=== PATIENT | male | born 1960 | race Two or more races ===

== ENCOUNTER → 2017-02-26 | Outpatient (CLI) | payer OTHER ==
[~2017-02-26] MED LIST: ACET325T33 PO; AMOX1TAB10 PO; IBUP-1542 PO; TRAM-40 PO
--- NOTE | 2017-02-27 05:09 | HKNOTE ---
DATE OF SERVICE: 02/26/2017 CHIEF COMPLAINT: Bilateral knee pain. HISTORY OF PRESENT ILLNESS: This is a 56-year-old male complaining of increasing bilateral knee mendez n. He states that the pain has been worsening over the last year. He has previously seen Dr. Brandon Ghotra at . He does not use any assist devices. He has not had any previous treatment. The p ain is constant. There are no alleviating factors. He denies any groin or back pain. GAIT: Antalgic gait. No use of assisted device. LEFT KNEE EXAMINATION: Varus alignment, tender over the medial joint line, 10 to 130 degrees range of motion and stable to varus/valgus stress, negative Jolly, negative anterior drawer, negative po sterior drawer. RIGHT KNEE EXAMINATION: Neutral alignment, tender over the medial joint line, positive effusion, 10 to 80 degrees range of motion, stable to varus and valgus stress, negative Jolly, negative anteri or posterior drawer, negative Gayle's. MOTOR STRENGTH: 5/5 hamstrings, gastrocsoleus and tibialis anterior bilaterally. X-RAYS RIGHT KNEE THREE VIEWS: There is advanced tricompartmental osteoarthritis of the right knee. X-RAYS LEFT KNEE: There is advanced tricompartmental osteoarthritis of left knee with marginal oste ophytes and subchondral sclerosis. IMPRESSION: This is a 56-year-old male with bilateral knee osteoarthritis. PLAN: I discussed treatment options with the patient. He would like to have a steroid injection of his knees. We will request authorization for bilateral knee corticosteroid injection. He will fol low up after authorization. Dictated By: JOY MUNOZ/JOSE ANGEL Conf#: [id number] DID#: [id number]
--- NOTE | 2017-02-27 13:06 | RADRPT ---
PROCEDURE: XR Knees. CLINICAL INDICATION: Bilateral knee pain. TECHNIQUE: Total of eight views. Weightbearing frontal, oblique, and lateral views of the both kn ees. Patellar views of both knees. COMPARISON: No prior study is available for comparison. FINDINGS: There is no fracture or dislocation. The soft tissues are normal. There are degenerative changes with osteophytes arising from all 3 joint compartment margins bilater ally. There is bilateral medial joint compartment narrowing, subarticular sclerosis, and deformity. There is no lytic or blastic lesion. There is no radiopaque foreign body. IMPRESSION: 1. Severe degenerative changes of both knees predominately involving the medial joint compartments. 2. No acute abnormality. RPTAT: QQ .Sebastian Bowers MD, MD Date Time Electronically viewed and signed by .Sebastian Bowers MD, MD on 02/27/2017 13:06 .R/
== END | disposition home or self-care (01) ==
LOC: HKI 13:42
PROVIDERS: ATTEND Orthopaedic Surgery Adult Reconstructive Orthopaedic Surgery
DX: M17.0 Bilateral primary osteoarthritis of knee (principal)
CPT/HCPCS: 73564; Z7500; G0463

== ENCOUNTER → 2017-04-02 | Outpatient (CLI) | payer OTHER ==
--- NOTE | 2017-04-02 15:44 | HKNOTE ---
DATE OF SERVICE: 04/02/2017 CHIEF COMPLAINT: Bilateral knee pain. HISTORY OF PRESENT ILLNESS: This is a 56-year-old male with bilateral knee osteoarthritis. His mendez n has not changed. He has difficulty performing his activities of daily living. He has difficulty ambulating and climbing stairs. He takes ibuprofen for pain control. He has no other complaints. Bilateral knee exam: Varus alignment, is tender over the medial and lateral joint line, 0 to 110 de grees range of motion stable to varus valgus stress, negative Jolly, negative anterior drawer, neg ative posterior drawer. IMPRESSION: A 56-year-old male with bilateral knee osteoarthritis. PLAN: After obtaining verbal consent, the left knee was prepped and draped in the usual sterile fas hion. An injection consisting of 1 mL of Kenalog along with 3 mL of 1% lidocaine was injected throu gh the lateral portal. There were no complications. He tolerated the procedure well. After obtaining verbal consent, the right knee was prepped and draped in the usual sterile fashion. An injection consisting of 1 mL of Kenalog along with 3 mL of 1% lidocaine was injected through the lateral portal. There were no complications. He tolerated the procedure well. He was instructed to ice and elevate bilateral knees. He can take ibuprofen for pain control. He w ill follow up within 3 months for followup. Dictated By: JOY MUNOZ/JOSE ANGEL Conf#: [id number] DID#: [id number]
== END | disposition home or self-care (01) ==
LOC: HKI 13:59
PROVIDERS: ATTEND Orthopaedic Surgery Adult Reconstructive Orthopaedic Surgery
DX: M17.0 Bilateral primary osteoarthritis of knee (principal)
CPT/HCPCS: 20610; Z7500; Z7610; G0463

== ENCOUNTER 2017-06-15 16:42 | Emergency (ER) | END 2017-06-15 18:34 | disposition home or self-care (01) ==

== ENCOUNTER → 2017-07-29 | Outpatient (CLI) | END | disposition home or self-care (01) ==

== ENCOUNTER → 2017-11-14 | Outpatient (CLI) | END | disposition home or self-care (01) ==

== ENCOUNTER 2017-11-15 07:46 | Inpatient (IN) | END 2017-11-17 15:30 | disposition home health service (06) | DRG 470 ==

== ENCOUNTER 2017-11-29 15:05 | Emergency (ER) | END 2017-11-29 18:11 | disposition home or self-care (01) ==

== ENCOUNTER → 2017-11-29 | Outpatient (CLI) | END | disposition home or self-care (01) ==

== ENCOUNTER → 2017-12-30 | Outpatient (CLI) | END | disposition home or self-care (01) ==

== ENCOUNTER → 2018-02-18 | Outpatient (CLI) | END | disposition home or self-care (01) ==

== ENCOUNTER → 2018-06-03 | Outpatient (CLI) | payer OTHER ==
[~2018-06-03] MED LIST changes: -ACET325T33 PO; -AMOX1TAB10 PO; -IBUP-1542 PO; +LOSA50TA14 PO; -TRAM-40 PO
--- NOTE | 2018-06-03 15:35 | RADRPT ---
PROCEDURE: Left knee radiographs. CLINICAL INDICATION: Left knee pain. Postop. TECHNIQUE: Three views. Weight bearing. Frontal, lateral, and patellar view. COMPARISON: 12/30/2017. FINDINGS: There is no fracture or dislocation. The soft tissues are normal. There is a total left knee arthroplasty which appears satisfactory. There is no lytic or blastic lesion. IMPRESSION: 1. Satisfactory postoperative appearance of the left knee. 2. No change from 12/30/2017. RPTAT: QQ .Sebastian Bowers MD, MD Date Time Electronically viewed and signed by .Sebastian Bowers MD, MD on 06/03/2018 15:35 .R/
--- NOTE | 2018-06-03 18:35 | HKNOTE ---
DATE OF SERVICE: HISTORY OF PRESENT ILLNESS: Mr. Mora returns today for evaluation. He is doing well after his l eft knee replacement. He does not use any assistive devices. He does not take any pain medications. He is very satisfied with the surgery. PHYSICAL EXAMINATION: Gait: Nonantalgic gait, reciprocal gait pattern. Left knee: Healed midline incision. Neutral alignment, 0 to 120 degrees range of motion, stable to varus valgus stress. A 5/5 quadriceps, tibialis anterior, gastric soleus. IMAGING: X-rays of left knee: Three views of the left knee demonstrate intact prosthesis in accepta ble alignment. No fractures, dislocations or loosening. IMPRESSION: A 57-year-old male status post left total knee arthroplasty on 11/15/2017. PLAN: Mr. Mora is doing well after his knee replacement. We will request authorization for akiko tional physical therapy for strengthening of the left knee. He does not require pain medications. Bee alanis will follow up in 11/2018 for his 1 year followup. Dictated By: JOY MUNOZ/JOSE ANGEL Conf#: [id number] DID#: [id number]
== END | disposition home or self-care (01) ==
LOC: HKI 15:03
PROVIDERS: ATTEND Orthopaedic Surgery Adult Reconstructive Orthopaedic Surgery
DX: Z09 Encounter for follow-up examination after completed treatment for conditions other than malignant neoplasm (principal); Z96.652 Presence of left artificial knee joint
CPT/HCPCS: 73562; Z7500; G0463